=== PATIENT | female | born 1970 | race Caucasian/White ===

== ENCOUNTER 2019-10-27 14:07 | Outpatient (CLI) | payer BC, SELFPAY ==
--- NOTE | ~2019-10-27 | MM_ITS ---
EXAMINATION: MM screening bi BI w lacey HISTORY: Screening TECHNIQUE: Craniocaudal and mediolateral oblique 3-D tomosynthesis images were obtained and synthetic 2-D images were generated. CAD analysis was submitted and interpreted. COMPARISON: Comparison to multiple prior studies sequentially, with oldest reviewed study dated 10/19. BREAST PARENCHYMAL COMPOSITION: There are scattered areas of fibroglandular density. FINDINGS: There is no evidence of suspicious mass, calcification, or architectural distortion to sugg est malignancy in either breast. There has been no suspicious interval change. IMPRESSION: 1. No mammographic evidence of malignancy. 2. Recommend routine screening mammography in one year. BI-RADS Category 1: Negative Reviewed, dictated and finalized at location A.
== END 2019-10-27 14:08 | disposition home or self-care (01) ==
LOC: ANHIMG 14:11
PROVIDERS: PCP Family Medicine; Visit Provider Obstetrics & Gynecology Gynecology
DX: Z12.31 Encounter for screening mammogram for malignant neoplasm of breast (principal)
CPT/HCPCS: 77063; 77067

== ENCOUNTER 2019-10-29 08:34 | Outpatient (CLI) | payer BC, SELFPAY ==
--- NOTE | ~2019-10-29 | CT_ITS ---
EXAMINATION: CT abdomen pelvis w con DATE: 10/29/2019 09:24 INDICATION: Diverticulitis of large intestine without perforation. TECHNIQUE: Computed tomography (CT) of the abdomen and pelvis was performed with 100 mL Omnipaque 350 intravenous contrast. Automated exposure control and iterative reconstruction technique were employe d. The dose-length product was 1635.45 mGy-cm. COMPARISON: CT abdomen and pelvis 11/24/2015 FINDINGS: The visualized portions of the lung bases demonstrate mild atelectasis. No pleural effusion . The heart size is normal. No pericardial effusion. There are coronary artery calcifications. The li ned and spleen are normal. There are changes of cholecystectomy. The pancreas, adrenal glands, and ki dneys are normal. There is diverticulosis of the colon without evidence of diverticulitis. There are no dilated loops of bowel. The appendix is not visualized. There are no pathologically enlarged lymph nodes. There is no free intraperitoneal fluid. There is an intrauterine device in expected position. There is moderate lower lumbar spondylosis. There is a chronic compression fracture of T7. IMPRESSION: 1. No evidence of diverticulitis. Reviewed, dictated and finalized at location B.
== END 2019-10-29 08:35 | disposition home or self-care (01) ==
PROVIDERS: PCP Family Medicine; Visit Provider Family Medicine
DX: K57.32 Diverticulitis of large intestine without perforation or abscess without bleeding (principal)
CPT/HCPCS: 74177; Q9967

== ENCOUNTER → 2019-12-14 13:54 | Outpatient (CLI) | payer OTHER, SELFPAY ==
--- NOTE | ~2019-12-14 | US_ITS ---
EXAMINATION: US pelvic complete DATE: 12/14/2019 14:22 INDICATION: Pelvic pain, assess IUD position TECHNIQUE: Multiple transabdominal sonographic images of the pelvis were obtained. COMPARISON: 06/16/[address] dated 10/29/2019 FINDINGS: The uterus measures 7.4 x 3.8 x 4.0 cm. An IUD is present in expected position. The endomet rial complex measures 4 mm. The right ovary measures 2.3 x 1.5 x 2.0 cm. The left ovary measures 5.3 x 3.3 x 4.7 cm and contains a 3.8 cm cyst. There is normal vascular flow in the ovaries. There is no free fluid in the pelvis. IMPRESSION: 1. No sonographic correlate for the patient's symptoms. 2. IUD in expected position. Reviewed, dictated and finalized at location A.
== END ==
PROVIDERS: PCP Family Medicine; Visit Provider Nurse Practitioner
DX: R10.2 Pelvic and perineal pain (principal)
CPT/HCPCS: 76856

== ENCOUNTER 2020-05-16 17:03 | Outpatient (CLI) | payer OTHER, SELFPAY | END 2020-05-16 17:04 | disposition home or self-care (01) | LOC: ANHCOVIDVC 17:03 | PROVIDERS: PCP Family Medicine | DX: Z23 Encounter for immunization (principal) | CPT/HCPCS: 0001A; 91300 ==

== ENCOUNTER → 2020-05-26 10:04 | Outpatient (CLI) | payer OTHER, SELFPAY ==
--- NOTE | ~2020-05-26 | XR_ITS ---
XR sacrum coccyx min 2V DATE: 05/26/2020 11:19 INDICATION: Coccyx pain TECHNIQUE: AP, angled AP and lateral views COMPARISON: None FINDINGS: IUD overlies the central pelvis. No sacral or coccygeal fracture or bone destruction is evident. Normal alignment at the sacroiliac joints and pubic symphysis. IMPRESSION: No sacral or coccygeal fracture is detected Reviewed, dictated and finalized at location A.
--- NOTE | ~2020-05-26 | XR_ITS ---
XR cervical spine 4-5V DATE: 05/26/2020 11:18 INDICATION: Neck pain TECHNIQUE: Lateral, swimmer's, AP, open-mouth views. Flexion and extension lateral views. COMPARISON: cervical spine FINDINGS: C1 and C2 are normally aligned and the odontoid process is intact. No fracture or dislocation or locked facet or cervical instability. No prevertebral soft tissue swell ing. Cervical interspaces are relatively preserved. IMPRESSION: No significant abnormality Reviewed, dictated and finalized at location A. IMPRESSION: No significant abnormality
--- NOTE | ~2020-05-26 | MR_ITS ---
EXAMINATION: MR lumbar spine wo con EXAM DATE: 05/26/2020 10:37 INDICATION: Lumbar radiculopathy, low back pain, bilateral leg numbness and burning. TECHNIQUE: Multi-sequential, multiplanar MR images of the lumbar spine were obtained without contrast . Sagittal T1, T2, T2 fat saturation images. Axial T2 weighted images. Comparison is made to prior examination from 01/21/2015. FINDINGS: Interval development of 2 mm retrolisthesis L3 on L4. Minimal disc disease from L3 through S1. No spondylolysis. The conus medullaris terminates at the L1 level and has normal signal intensity and morphology. There are no suspicious marrow signal abnormalities. Paraspinal soft tissue is unre markable. Level by level evaluation: T12-L1: Disc does not extend beyond the endplate margin. Facet arthropathy: Minimal. Neural foraminal stenosis: No stenosis. Central canal stenosis: No stenosis. L1-L2: Disc does not extend beyond the endplate margin. Facet arthropathy: Mild. Neural foraminal stenosis: No stenosis. Central canal stenosis: No stenosis. L2-L3: Disc does not extend beyond the endplate margin. Facet arthropathy: Mild. Neural foraminal stenosis: No stenosis. Central canal stenosis: No stenosis. L3-L4: Disc does not extend beyond the endplate margin. Facet arthropathy: Mild. Neural foraminal stenosis: No stenosis. Central canal stenosis: No stenosis. L4-L5: Disc does not extend beyond the endplate margin. Facet arthropathy: Mild to moderate. Neural foraminal stenosis: No stenosis. Central canal stenosis: No stenosis. L5-S1: Disc does not extend beyond the endplate margin. Facet arthropathy: Mild to moderate. Neural foraminal stenosis: Mild left. Central canal stenosis: No stenosis. IMPRESSION: 1. Mild lumbar spondylosis. 2. L5-S1 mild left neural foraminal stenosis, otherwise neural foramen and canal widely patent. Reviewed, dictated and finalized at location A. IMPRESSION: 1. Mild lumbar spondylosis. 2. L5-S1 mild left neural foraminal stenosis, otherwise neural foramen and can al widely patent.
== END ==
PROVIDERS: PCP Family Medicine; Visit Provider Nurse Practitioner Family
DX: M54.2 Cervicalgia (principal); M47.26 Other spondylosis with radiculopathy, lumbar region
CPT/HCPCS: 72050; 72148; 72220

== ENCOUNTER 2020-06-06 16:51 | Outpatient (CLI) | payer OTHER, SELFPAY | END 2020-06-06 16:52 | disposition home or self-care (01) | LOC: ANHCOVIDVC 16:51 | PROVIDERS: PCP Family Medicine | DX: Z23 Encounter for immunization (principal) | CPT/HCPCS: 0002A; 91300 ==

== ENCOUNTER 2020-07-08 01:36 | Emergency (ER) | payer OTHER, SELFPAY ==
[2020-07-08] VITALS (29 sets, daily range): BP systolic 127–149; BP diastolic 74–97; PULSE 61–94; RESP 10–24; TEMP 36.8; O2SAT 90–100
--- NOTE | ~2020-07-08 | CT_ITS ---
EXAMINATION: CTA chest PE abdomen pel DATE: 07/08/2020 08:19 CDT INDICATION: Shortness of breath with back pain. History of pulmonary embolism. TECHNIQUE: Computed tomographic angiography (CTA) of the chest, abdomen, and pelvis was performed wit h 100 mL Omnipaque-350 intravenous contrast. The dose-length product was 2104.81 mGy-cm. Maximum inte nsity projection 3D-reconstructions of the aorta and other arteries were constructed by the technolog ist on a separate workstation. Automated exposure control and iterative reconstruction technique were employed. COMPARISON: CT dated 10/29/2019. FINDINGS: CHEST CTA: Study is technically adequate without evidence for pulmonary embolism. Heart size normal. No thoracic lymphadenopathy. No significant pleural or pericardial effusion. No focal airspace disease. No pneum othorax. No suspicious pulmonary nodules or masses. ABDOMEN AND PELVIS CTA: Status post cholecystectomy. The liver, spleen, pancreas, adrenal glands and kidneys are unremarkable . Nonobstructive bowel gas pattern. IUD in expected position. There is a 4.2 cm right ovarian cyst. N o free fluid or free air. No evidence for aortic aneurysm or dissection. IMPRESSION: 1. No acute abnormality of the chest, abdomen or pelvis. 2: Right ovarian cyst measuring up to 4.2 cm. Reviewed, dictated and finalized at location A.
--- NOTE | ~2020-07-08 | XR_ITS ---
EXAMINATION: XR chest 2V 07/08/2020 03:38 INDICATION: Shortness of breath. History of pulmonary embolism. PROCEDURE: 2 view chest COMPARISON: 07/19/2017 FINDINGS: The lungs are clear. The cardiomediastinal silhouette is within normal limits. There are no pleural effusions. There is no pneumothorax suspected. IMPRESSION: 1: NO ACUTE CARDIOPULMONARY DISEASE. Reviewed, dictated and finalized at location A.
--- NOTE | 2020-07-08 03:12 | ECG_ITS ---
Measurements Intervals [place] Rate: 68 P: 39 ND: 159 QRS: 16 QRSD: 98 T: 1 QT: 378 QTc: 403 Interpretive Statements SINUS RHYTHM BASELINE ARTIFACT- II, III, AVF, V1, V3-V6 NORMAL ECG Electronically Signed On 07-08-2020 7:38:24 CDT by Dayron Holman D.O.
[2020-07-08 03:36] LABS: Basophils Percent Auto 0.3 % (0.2-1.2); Eosinophils Absolute Auto 0.1 K/mm3 (0-0.3); Eosinophils Percent Auto 0.7 % (0-4.4); Hematocrit 45.2 % (37.0-47.0); Hemoglobin 15.6 g/dL (12.0-15.0); Immature Granulocyte Absolute 0.03 K/mm3 (0.00-0.031); Immature Granulocyte Percent A 0.3 % (0-0.5); Lymphocytes Absolute Auto 1.64 K/mm3 (0.9-3.2); Mean Corpuscular HGB Conc 34.5 g/dl (32-36); Mean Corpuscular Volume 92.8 fl (80-100); Mean Platelet Volume 11.6 fl (7.4-10.4); Monocytes Absolute Auto 0.9 K/mm3 (0.1-0.6); Monocytes Percent Auto 9.3 % (2.6-8.5); Neutrophils Absolute Auto 6.5 K/mm3 (1.3-6.7); Neutrophils Percent Auto 71.4 % (45.5-73.1); Platelet Count Result 198 k/mm3 (150-375); Red Blood Count 4.87 M/mm3 (4.2-5.4); Red Cell Distribution Width 13.2 % (11.5-14.5); White Blood Count 9.1 K/mm3 (4.5-10.0)
[2020-07-08 03:45] LABS: Potassium 4.1 mmol/L (3.4-5.0)
[2020-07-08 03:47] LABS: Anion Gap 7 mmol/L (8-16); Blood Urea Nitrogen 17 mg/dL (7-17); Calcium 9.3 mg/dL (8.4-10.2); Carbon Dioxide 23 mmol/L (22-30); Chloride 106 mmol/L (98-107); Estimated CRCL calculation 92 ml/min; Estimated Glomerular Filt Rate > 60; Glucose 87 mg/dL (65-105); Sodium 136 mmol/L (137-145)
--- NOTE | 2020-07-08 04:43 | ED.GENADULT ---
HPI - General Adult General Chief complaint: Shortness of Breath/Dyspnea Stated complaint: doiff breathing/anxiety Time Seen by Provider: 07/08/20 04:23 Source: patient and RN notes reviewed Mode of arrival: ambulatory Limitations: no limitations History of Present Illness HPI narrative: This is a 49 year old female with history of fibromyalgia, hyperthyroid, depression, PE who presents from home for evaluation of shortness of breath. Patient states just prior to arrival she woke up shaky, bilateral hand tingling, feeling like her throat was closing, and short of breath. She thought she was having an allergic reaction. She also states she had epigastric abdominal pain at onset with nausea. Her symptoms have all resolved except mild nausea. She also reports intermittent back pain . She takes xarelto for history of blood clots. She reports compliance. She denies signs of DVT. Related Data Home Medications Medication Instructions Recorded Confirmed bevacizumab 25 mg/mL intravenous INTRAVITREAL 01/20/20 06/14/20 solution naltrexone 1.5 mg PO DAILY 07/08/20 Allergies Allergy/AdvReac Type Severity Reaction Status Date / Time sulfamethoxazole Allergy Mild RASSH Verified 07/08/20 01:50 trimethoprim Allergy Mild RASSH Verified 07/08/20 01:50 Sulfa (Sulfonamide Allergy Unknown Unknown Verified 07/08/20 01:50 Antibiotics) sulfamethizole Allergy Unknown Skin Verified 07/08/20 01:50 Reaction Review of Systems Review of Systems: All systems reviewed & are unremarkable except as noted in HPI and below PMFSH Past Medical History Medical History Carpal tunnel syndrome, bilateral Diverticulitis large intestine DVT (deep venous thrombosis) Elevated blood pressure, situational Hypothyroid Interstitial cystitis Obesity Retinal vein occlusion of left eye Family History Family History Mother Diabetes mellitus Father Cerebrovascular accident, Onset Age: 72 Family history of coronary artery disease, Onset Age: 72 Family history of atrial fibrillation, Onset Age: 72 Family history of congestive heart failure, Onset Age: 72 Other Carcinoma of colon Family history of colonic diverticulitis Social History Social History Smoking status: Never smoker Alcohol intake: never Exam Const: General: no acute distress and alert Orientation/consciousness: patient oriented x3 HENMT: Head: normocephalic and atraumatic Face and sinus: face symmetric Mouth: Yes Normal oral and palatal mucosa present, Yes lip normal, Yes oropharynx normal, Yes moist mucous membranes and Yes other (no hoarseness or stridor) Throat: posterior oropharynx normal and tonsils normal Eyes: EOM: EOMs intact bilaterally Resp: Effort & Inspection: normal respiratory effort and no retractions Auscultation: clear to auscultation bilaterally Cardio: Rate: regular rate Rhythm: regular rhythm Heart sounds: no murmurs GI: GI Palp: Yes Soft to palpation, No Tenderness to palpation present (GI) and No Guarding due to palpation present (GI) Auscultation: normal bowel sounds Skin: General skin exam: normal color Rashes: no rashes Neuro: General: patient oriented x3, moves all extremities and CN's II-XI intact bilaterally Course Reevaluation(s) Reevaluation #1: I discussed with patient lab finding. She had an elevated lipase but no pancreatitis on CT. Troponin has been negative. She has no symptoms now. this may have been a panic attack. Date: 07/08/20 Time: 07:39 Vital Signs Vital signs: Vital Signs Temperature 98.2 F 07/08/20 01:42 Pulse Rate 90 07/08/20 01:42 Respiratory Rate 19 07/08/20 01:42 Blood Pressure 149/97 H 07/08/20 01:42 Pulse Oximetry 100 07/08/20 01:42 Temperature 98.2 F 07/08/20 01:42 Pulse Rate
[2020-07-08] MEDS: ONDANSETRON HCL ODT 4 MG TABLET PO (04:50)
[2020-07-08 05:38] LABS: Alanine Aminotransferase 36 U/L (4-35); Albumin Level 4.3 g/dL (3.5-5.1); Alkaline Phosphatase 98 U/L (38-126); Aspartate Amino Transferase 40 U/L (14-36); Bilirubin,Total 0.6 mg/dL (0.2-1.3); Lipase 786 U/L (23-300)
[2020-07-08 05:57] LABS: Troponin I < 0.012 ng/mL (0.000-0.034)
[2020-07-08 06:09] LABS: D Dimer 0.27 ug/mL (<0.48)
[2020-07-08 07:02] LABS: Troponin I < 0.012 ng/mL (0.000-0.034)
== END 2020-07-08 08:09 | disposition home or self-care (01) ==
PROVIDERS: Emergency Provider General Practice; PCP Family Medicine
DX: F41.9 Anxiety disorder, unspecified (principal); R74.8 Abnormal levels of other serum enzymes; E03.9 Hypothyroidism, unspecified; M79.7 Fibromyalgia; Z86.711 Personal history of pulmonary embolism; Z79.01 Long term (current) use of anticoagulants; Z86.718 Personal history of other venous thrombosis and embolism; Z68.41 Body mass index [BMI] 40.0-44.9, adult
CPT/HCPCS: 36415; 71046; 71275; 74177; 80048; 80076; 81025; 83690; 84484; 85025; 85380; 93005; 99284; A9270; Q9967

== ENCOUNTER 2021-11-11 10:39 | Emergency (ER) | payer BC, SELFPAY ==
[2021-11-11] VITALS (7 sets, daily range): BP systolic 115–140; BP diastolic 84–95; PULSE 82–109; RESP 16–20; TEMP 36.4; O2SAT 97–99
--- NOTE | ~2021-11-11 | CT_ITS ---
EXAMINATION: CTA chest PE protocol DATE: 11/11/2021 13:17 INDICATION: Shortness of breath. Covid-positive. History of pulmonary embolism. TECHNIQUE: Computed tomography angiography (CTA) of the chest was performed with 100 mL Omnipaque-350 intravenous contrast timed to evaluate the pulmonary arteries. Coronal maximum intensity projection 3D-reconstructions were created by the technologist. Automated exposure control and iterative reconst ruction technique were employed. Exam dose: 811.55 mGy-cm total exam DLP. COMPARISON: 11/11/2021 PA and lateral chest FINDINGS: There is diagnostic contrast enhancement of the pulmonary arteries and no evidence of pulmo nary embolism. No hilar or mediastinal mass lesion or lymphadenopathy. No thoracic aortic aneurysm or dissection. Heart size is within normal limits. No pericardial or pleural effusion. Patchy groundglass density of the lung wood suggesting small airways disease. Status post cholecystectomy. Normal morphology of the adrenal glands. Colonic diverticulosis. IMPRESSION: No evidence of pulmonary embolism Reviewed, dictated and finalized at Location A. Reviewed, dictated and finalized at location A.
--- NOTE | ~2021-11-11 | XR_ITS ---
XR chest 2V DATE: 11/11/2021 11:03 INDICATION: Cough. Covid-positive. TECHNIQUE: PA and lateral views COMPARISON: 07/08/2020 CTA chest abdomen pelvis FINDINGS: Normal heart size. No hilar or mediastinal enlargement. No pulmonary infiltrate or consolid ation, pleural effusion or pulmonary vascular congestion or pneumothorax. Chronic moderate T7 compression fracture deformity, present on 07/18/2020, stable. Status post cholecystectomy. IMPRESSION: No active cardiopulmonary disease Chronic T7 compression fracture Status post cholecystectomy Reviewed, dictated and finalized at location A.
--- NOTE | 2021-11-11 10:46 | ECG_ITS ---
Measurements Intervals [place] Rate: 87 P: 30 [place]: 167 QRS: 17 QRSD: 92 T: 16 QT: 338 QTc: 407 Interpretive Statements SINUS RHYTHM CONSIDER INFERIOR INFARCT, AGE INDETERMINATE BORDERLINE T WAVE ABNORMALITY- ANTERIOR LEADS BASELINE ARTIFACT- I, II, AVR ABNORMAL ECG COMPARED TO ECG 07/08/2020 04:49:03 NO SIGNIFICANT CHANGES Electronically Signed On 11-12-2021 6:43:59 CDT by Dayron Holman D.O.
[2021-11-11 10:57] LABS: Basophils Percent Auto 0.8 % (0.2-1.2); Eosinophils Absolute Auto 0.1 K/mm3 (0-0.3); Eosinophils Percent Auto 2.5 % (0-4.4); Immature Granulocyte Absolute 0.01 K/mm3 (0.00-0.031); Immature Granulocyte Percent A 0.3 % (0-0.5); Lymphocytes Absolute Auto 1.44 K/mm3 (0.9-3.2); Lymphocytes Percent Auto 39.8 % (18.3-44.2); Mean Corpuscular Hemoglobin 31.4 pg (26-34); Mean Corpuscular Volume 92.2 fl (80-100); Mean Platelet Volume 11.9 fl (7.4-10.4); Monocytes Absolute Auto 0.2 K/mm3 (0.1-0.6); Monocytes Percent Auto 5.5 % (2.6-8.5); Neutrophils Absolute Auto 1.9 K/mm3 (1.3-6.7); Neutrophils Percent Auto 51.1 % (45.5-73.1); Platelet Count Result 209 k/mm3 (150-375); Red Cell Distribution Width 12.9 % (11.5-14.5); White Blood Count 3.6 K/mm3 (4.5-10.0)
[2021-11-11 11:08] LABS: Alanine Aminotransferase 33 U/L (6-35); Albumin Level 4.8 g/dL (3.5-5.1); Alkaline Phosphatase 86 U/L (38-126); Anion Gap 16 mmol/L (8-16); Aspartate Amino Transferase 31 U/L (14-36); Bilirubin,Total 0.6 mg/dL (0.2-1.3); Blood Urea Nitrogen 11 mg/dL (7-17); Calcium 9.3 mg/dL (8.4-10.2); Carbon Dioxide 22 mmol/L (22-30); Chloride 102 mmol/L (98-107); Estimated CRCL calculation 80 ml/min; Estimated Glomerular Filt Rate 59; Glucose 168 mg/dL (65-110); Potassium 3.9 mmol/L (3.4-5.0); Sodium 140 mmol/L (137-145)
--- NOTE | 2021-11-11 12:46 | ED.SOB ---
HPI - SOB/Dyspnea General Chief Complaint: Shortness of Breath/Dyspnea Stated Complaint: COVID+, hx of PE Time Seen by Provider: 11/11/21 11:51 Source: patient Mode of arrival: ambulatory Limitations: no limitations History of Present Illness HPI Narrative: This is a 50 year old female that presents to the ER for shortness of breath. Associated with pain between her shoulder blades. Reports history of PE and that this felt similar which prompted her to be seen. Reports sore throat, headache, fever, congestion, myalgias. She is currently COVID positive. She is vaccinated. Denies lower extremity edema. Related Data Home Medications Medication Instructions Recorded Confirmed bevacizumab 25 mg/mL intravenous intravitreal 01/20/20 06/28/21 solution (Avastin) doxycycline hyclate 100 mg tablet 100 mg PO BID 08/06/21 Allergies Allergy/AdvReac Type Severity Reaction Status Date / Time sulfamethoxazole Allergy Mild RASSH Verified 11/11/21 11:41 trimethoprim Allergy Mild RASSH Verified 11/11/21 11:41 Sulfa (Sulfonamide Allergy Unknown Unknown Verified 11/11/21 11:41 Antibiotics) sulfamethizole Allergy Unknown Skin Verified 11/11/21 11:41 Reaction Review of Systems Review of Systems: CONSTITUTIONAL: Denies fever CARDIOVASCULAR: Denies chest pain, or edema. RESPIRATORY: Reports cough and dyspnea. All systems reviewed & are unremarkable except as noted in HPI and below PMFSH Past Medical History Medical History Carpal tunnel syndrome, bilateral Diverticulitis large intestine DVT (deep venous thrombosis) Elevated blood pressure, situational Hypothyroid Interstitial cystitis Obesity Retinal vein occlusion of left eye Family History Family History Mother Diabetes mellitus Father Cerebrovascular accident, Onset Age: 72 Family history of coronary artery disease, Onset Age: 72 Family history of atrial fibrillation, Onset Age: 72 Family history of congestive heart failure, Onset Age: 72 Other Carcinoma of colon Family history of colonic diverticulitis Social History Social History Smoking status: Never smoker Alcohol intake: never Exam Narrative: GENERAL: Well-appearing, well-nourished, and in no acute distress. HEAD: Normocephalic, atraumatic. EYES: EOMI. ENT: Nares clear, no rhinorrhea or epistaxis. Mucous membranes moist. Oropharynx without tonsillar hypertrophy exudate or other lesions. NECK: Supple. No adenopathy or masses. CHEST: Clear to auscultation. No respiratory distress. No wheezes rales or rhonchi HEART: Regular rate and rhythm. No murmur heard. Normal peripheral pulses. EXTREMITIES: Normal range of motion. No edema. SKIN: Warm, dry, no rash. NEURO: No focal deficits. Alert and oriented x3. PSYCH: Normal mood and affect Course Vital Signs Vital signs: Vital Signs Temperature 97.6 F 11/11/21 10:43 Pulse Rate 109 H 11/11/21 10:43 Respiratory Rate 16 11/11/21 10:43 Blood Pressure 120/85 11/11/21 10:43 Pulse Oximetry 99 11/11/21 10:43 Oxygen Delivery Room Air 11/11/21 10:43 Temperature 97.6 F 11/11/21 10:43 Pulse Rate 82 11/11/21 12:40 Respiratory Rate 20 11/11/21 12:40 Blood Pressure 140/90 11/11/21 12:40 Pulse Oximetry 98 11/11/21 12:40 Oxygen Delivery Room Air 11/11/21 11:38 MDM - SOB/Dyspnea MDM Narrative Medical decision making narrative: Patient presents to the ER for shortness of breath. Currently COVID positive. Patient is afebrile and nontoxic appearing. Oxygen saturations remained normal on room air. CBC with white blood cell count of 3.6, consistent with current viral infection. Patient is also mildly hemoconcentrated. Metabolic panel without concerning findings. Bedside test is negative. Patient with history of PE. Repo
== END 2021-11-11 14:36 | disposition home or self-care (01) ==
PROVIDERS: Emergency Provider Emergency Medicine; PCP Family Medicine
DX: U07.1 COVID-19 (principal); E03.9 Hypothyroidism, unspecified; Z86.718 Personal history of other venous thrombosis and embolism; E66.9 Obesity, unspecified; Z68.41 Body mass index [BMI] 40.0-44.9, adult
CPT/HCPCS: 36415; 71046; 71275; 80053; 81025; 85025; 93005; 99284; Q9967

== ENCOUNTER → 2022-01-21 07:01 | Outpatient (CLI) | payer BC, SELFPAY ==
--- NOTE | ~2022-01-21 | MR_ITS ---
EXAMINATION: MR ankle RT wo con DATE: 01/21/2022 07:39 INDICATION: Right ankle posterior tibial tendinitis. TECHNIQUE: Magnetic resonance imaging (MRI) of the right ankle was performed without intravenous cont rast. Sequences included sagittal, coronal, and axial proton-density weighted fast spin echo without and with fat saturation. COMPARISON: None. FINDINGS: Medial ankle ligaments: Deep and superficial deltoid ligaments as well as the spring ligament are normal. Lateral ankle ligaments: The anterior and posterior inferior tibiofibular ligaments are normal. The anterior talofibular, calc aneofibular and posterior talofibular ligaments are normal. Tendons: Mild distal Achilles tendinosis without discrete tear. Small enthesopathic ossicles along the superficial margin of the distal insertion of the tendon. The peroneus longus and brevis tendons are normal. The tibialis anterior and extensor hallucis longus and extensor digitorum longus tendons are normal. The tibialis posterior, flexor digitorum longus and fl exor hallucis longus tendons are normal. Plantar fascia: Plantar aponeurosis is normal. Bones/other: Minimal to mild particular osteoarthritis throughout the joints of the right ankle, mid and hindfoot. This most notable for small region of high-grade chondromalacia at the dorsolateral aspect of the ca lcaneocuboid joint where there is high-grade chondral malacia with mild subarticular cystlike and romario ma-like signal changes. Fluid: Physiologic amount fluid in the joint spaces. There is fluid in the retrocalcaneal bursa which measur es 1.8 x 1.4 x 0.8 cm consistent with retrocalcaneal bursitis. No other abnormal fluid collections id entified. IMPRESSION: 1. Mild distal Achilles tendinosis/enthesopathy with underlying retrocalcaneal bursitis. 2. Mild polyarticular osteoarthritis at the right ankle, mid and hindfoot with small regions of high- grade chondromalacia at the dorsal lateral margin of both sides of the calcaneocuboid joint. Reviewed, dictated and finalized at location A. PATIONAL THERAPY ASSIST IMPRESSION: 1. Mild distal Achilles tendinosis/enthesopathy with underlying retrocalcaneal bursitis. 2. Mild polyarticular osteoarthritis at the right ankle, mid and hindfoot with small regions of high-grade chondromalacia at the dorsal lateral margin of both sides of the calcaneocuboid joint.
== END ==
PROVIDERS: PCP Family Medicine; Visit Provider Podiatrist Foot & Ankle Surgery
DX: M76.821 Posterior tibial tendinitis, right leg (principal); M19.071 Primary osteoarthritis, right ankle and foot
CPT/HCPCS: 73721

== ENCOUNTER → 2023-02-07 08:48 | Outpatient (CLI) | payer BC, SELFPAY ==
--- NOTE | ~2023-02-07 | US_ITS ---
US abdomen complete EXAMINATION: US Abdomen Complete INDICATION: Abdomen pain PROCEDURE: Realtime High Resolution abdomen ultrasound. COMPARISON: No prior studies for comparison FINDINGS: The bladder is surgically absent. Common bile duct measures 4.5 mm. Liver echotexture within normal limits without focal mass. Pancreas within normal limits. Pancreati c tail is obscured by bowel gas. Spleen is unremarkeable. Renal echotexture is within normal limits bilaterally without hydronephrosis, contour deforming mass or renal stone. Right kidney measures 10.8 cm. Left kidney measures 9.9 cm. Visualized aspects of the aorta and IVC are within normal limits. Portal vein is patent. No sonograph ic Holbrook's sign indicated by the technologist. IMPRESSION: 1: Unremarkable abdominal ultrasound. Reviewed, dictated and finalized at location B. 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
== END ==
PROVIDERS: PCP Family Medicine; Visit Provider Nurse Practitioner Family
DX: R10.9 Unspecified abdominal pain (principal)
CPT/HCPCS: 76700

== ENCOUNTER 2023-03-11 18:28 | Inpatient (IN) | payer BC, SELFPAY ==
--- NOTE | ~2023-03-11 | CT_ITS ---
EXAMINATION: CT abdomen pelvis w con DATE: 03/11/2023 21:57 INDICATION: Abdominal pain elevated lipase TECHNIQUE: Computed tomography (CT) of the abdomen and pelvis was performed with 100 mL Omnipaque-350 intravenous contrast. Automated exposure control and iterative reconstruction technique were employe d. The dose-length product was 1210.69 mGy-cm. COMPARISON: 07/08/2020. FINDINGS: Lower thorax: Coronary artery calcifications. Right basilar scar/atelectasis. Liver: Normal. Biliary/Gallbladder: Gallbladder is absent. Prominent intrahepatic bile ducts and mild extrahepatic d uct dilation, likely secondary to cholecystectomy. Pancreas: No mass or duct dilation. Spleen: Normal. Adrenals:No mass. Kidneys: No suspicious mass, obstructing stone, or hydronephrosis. GI tract: Mild distal esophageal and gastric wall edema. No small or large bowel dilation. The append ix is not confidently visualized. Diverticulosis without diverticulitis. Mesentery/Peritoneum: No ascites, mass, or free air. Retroperitoneum: No mass. Pelvis: Pelvic organs are within normal limits. IUD. Soft Tissues: Soft tissues and body wall unremarkable. Bones: No acute osseous finding. IMPRESSION: Mild esophagitis/gastritis. Otherwise, no acute abdominopelvic process detected. Specifically, there is no CT evidence of pancrea titis. Reviewed, dictated and finalized at location K. CUTTER IMPRESSION: Mild esophagitis/gastritis. Otherwise, no acute abdominopelvic process detected. Specifically, there is no CT evidence of pancreatitis.
[2023-03-11 19:19] VITALS: BP 114/88; PULSE 107; RESP 20; TEMP 35.9; O2SAT 98
[2023-03-11 20:13] LABS: Basophils Percent Auto 0.2 % (0.2-1.2); Eosinophils Absolute Auto 0.5 K/mm3 (0-0.3); Eosinophils Percent Auto 8.1 % (0-4.4); Hematocrit 46.6 % (37.0-47.0); Hemoglobin 16.3 g/dL (12.0-15.0); Immature Granulocyte Absolute 0.01 K/mm3 (0.00-0.031); Immature Granulocyte Percent A 0.2 % (0-0.5); Lymphocytes Absolute Auto 1.32 K/mm3 (0.9-3.2); Mean Corpuscular Hemoglobin 32.8 pg (26-34); Mean Corpuscular Volume 93.8 fl (80-100); Mean Platelet Volume 11.9 fl (7.4-10.4); Monocytes Absolute Auto 0.3 K/mm3 (0.1-0.6); Monocytes Percent Auto 5.2 % (2.6-8.5); Neutrophils Absolute Auto 4.1 K/mm3 (1.3-6.7); Neutrophils Percent Auto 65.3 % (45.5-73.1); Platelet Count Result 192 k/mm3 (150-375); Red Blood Count 4.97 M/mm3 (4.2-5.4); Red Cell Distribution Width 12.2 % (11.5-14.5); White Blood Count 6.3 K/mm3 (4.5-10.0)
[2023-03-11 20:29] LABS: Alanine Aminotransferase 96 U/L (6-35); Albumin Level 4.3 g/dL (3.5-5.1); Alkaline Phosphatase 126 U/L (38-126); Anion Gap 9 mmol/L (8-16); Aspartate Amino Transferase 99 U/L (14-36); Bilirubin,Total 1.2 mg/dL (0.2-1.3); Blood Urea Nitrogen 15 mg/dL (7-17); Calcium 9.1 mg/dL (8.4-10.2); Carbon Dioxide 23 mmol/L (22-30); Chloride 106 mmol/L (98-107); Estimated CRCL calculation 64 ml/min; Estimated Glomerular Filt Rate 52; Glucose 136 mg/dL (65-110); Lipase 1205 U/L (23-300); Sodium 138 mmol/L (137-145)
[2023-03-11 21:11] LABS: Add Urine Microscopic? YES; Appearance Urine Clear (Clear); Color Urine Yellow (Yellow); Protein Urine Trace mg/dL (Negative); Specific Grav Ur >= 1.030 (1.001-1.035); pH Urine 5.5 (5.0-9.0)
[2023-03-11 21:12] LABS: Bilirubin Urine 1+ (Negative); Blood Urine Negative (Negative); Glucose Urine UA Negative (Negative); Ketones Urine Trace mg/dL (Negative); Leukocyte Esterase Ur Trace LEU/UL (Negative); Nitrate Urine Negative (Negative); Urobilinogen Urine 0.2 mg/dL (<2.0)
[2023-03-11 21:13] LABS: Bacteria Urine Trace /hpf; RBC Urine 0-2 /hpf (0-2); Squamous Epithelial Cell Urine Few /hpf (Few); WBC Urine 0-3 /hpf (0-3)
[2023-03-11 21:14] LABS: Mucus Urine Few /lpf
[2023-03-11] MEDS: ONDANSETRON INJ 4 MG/2 ML VIAL IV PUSH (21:46)
[2023-03-11] MEDS: SODIUM CHLORIDE 0.9% IV 1,000 ML 999 ML IV CONT (21:46)
[2023-03-11 22:16] VITALS: BP 130/81; PULSE 63; RESP 16; O2SAT 98
[2023-03-11] MEDS: MORPHINE SULFATE (*CRX) 4 MG/ML INJ IV PUSH (22:55)
[2023-03-11 23:16] VITALS: BP 111/59; PULSE 56; RESP 21; O2SAT 98
[2023-03-11 23:31] VITALS: BP 112/70; PULSE 56; RESP 24; O2SAT 99
[2023-03-11 23:46] VITALS: BP 131/83; PULSE 61; RESP 13; O2SAT 92
[2023-03-12] VITALS (7 sets, daily range): BP systolic 92–128; BP diastolic 49–95; PULSE 54–61; RESP 13–20; TEMP 35.6–36.4; O2SAT 95–100; BMI 35.2
--- NOTE | 2023-03-12 00:02 | ED.GENADULT ---
HPI - General Adult General Chief complaint: Abdominal Pain Stated complaint: diarrhea X24 hours adn abdominal pain Time Seen by Provider: 03/11/23 21:28 History of Present Illness HPI narrative: Patient is a 52-year-old female who presents emergency department with chief complaint of abdominal pain and diarrhea. The patient reports having pain in the epigastric region reports that it feels similar to whenever she had pancreatitis secondary to a gallstone the patient was has recently been on Wegovy. Related Data Home Medications Medication Instructions Recorded Confirmed famotidine 40 mg tablet 40 mg PO DAILY 03/05/22 03/12/23 bupropion HCl 300 mg 24 hr tablet, 300 mg PO DAILY 03/12/23 03/12/23 extended release (Wellbutrin XL) clotrimazole-betamethasone 1 1 applic topical BID PRN yeast 03/12/23 03/12/23 %-0.05 % topical cream omeprazole 40 mg PO DAILY PRN Heartburn 03/12/23 03/12/23 spironolactone 50 mg tablet 50 mg PO DAILY 03/12/23 03/12/23 Allergies Allergy/AdvReac Type Severity Reaction Status Date / Time sulfamethoxazole Allergy Mild Rash Verified 03/12/23 02:39 trimethoprim Allergy Mild Rash Verified 03/12/23 02:39 Sulfa (Sulfonamide Allergy Unknown Unknown Verified 03/12/23 02:39 Antibiotics) sulfamethizole Allergy Unknown Skin Verified 03/12/23 02:39 Reaction Review of Systems Review of Systems: A 10 system review of systems was completed on the patient and is negative except for what is stated in the HPI. Nursing and ancillary documentation was reviewed. [facility] [place] Past Medical History Medical History Carpal tunnel syndrome, bilateral Diverticulitis large intestine DVT (deep venous thrombosis) Elevated blood pressure, situational Hypothyroid Interstitial cystitis Obesity Retinal vein occlusion of left eye Family History Family History Mother Diabetes mellitus Father Family history of coronary artery disease, Onset Age: 72 Family history of atrial fibrillation, Onset Age: 72 Family history of congestive heart failure, Onset Age: 72 Cerebrovascular accident, Onset Age: 72 Family history of colonic diverticulitis Grandparent Carcinoma of colon Social History Social History Smoking status: Never smoker Alcohol intake: never Drinks per week: 2 Substance use: never Substance use type: does not use Do You Feel Safe in your Home?: Yes Lack of Transportation: No Lack of Food: Never True Current Housing: I Have Housing Concerned About Future Housing: No Difficulty Paying Gas/Electric Bills: No Difficulty Paying for Meds: No Currently Unemployed: No Education: High School Diploma/GED Difficulty w/ Childcare or Family Care: No Living arrangements: alone Spiritual care concerns: No Exam Narrative: GENERAL: Well-appearing, well-nourished, and in no acute distress. HEAD: Normocephalic, atraumatic. EYES: PERRLA and EOMI. ENT: Nares clear, no rhinorrhea or epistaxis. Mucous membranes moist. NECK: Supple. CHEST: Clear to auscultation. No respiratory distress. HEART: Regular rate and rhythm. No murmur heard. Normal peripheral pulses. ABDOMEN: Soft, tenderness to palpation in the epigastric region, nondistended, normal active bowel sounds. EXTREMITIES: Normal range of motion. No edema. SKIN: Warm, dry, no rash. NEURO: No focal deficits. Alert and oriented x3. PSYCH: Normal mood and affect. Course Vital Signs Vital signs: Vital Signs Temperature 35.9 C L 03/11/23 19:19 Pulse Rate 107 H 03/11/23 19:19 Respiratory Rate 20 03/11/23 19:19 Blood Pressure 114/88 03/11/23 19:19 Pulse Oximetry 98 03/11/23 19:19 Oxygen Delivery Room Air 03/11/23 19:19 Temperature 36.2 C L 03/13/23 00:00 Pulse Rate 64 03/13/23 00:00 R
[2023-03-12] MEDS: MORPHINE SULFATE (*CRX) 4 MG/ML INJ IV PUSH ×3 (00:58→05:52)
[2023-03-12] MEDS: SODIUM CHLORIDE 0.9% IV 1,000 ML 200 ML IV CONT ×3 (02:29→09:55)
--- NOTE | 2023-03-12 02:32 | ADMGEN ---
This patient, Katelyn Malave, was admitted to 3 [facility] Surg Room 320-01. Patient/family oriented to hospital policies and general routines including ID bracelet, bed and alarms, visiting hours, pain management, procedures, bathroom and other care routines, personal items, smoking policy, room service/diet, and visiting hours. Information on how to activate the Rapid Response Team has been discussed. Patient/Family are encouraged to report perceived risks to care and to ask questions if they do not understand what they are told or what they should do.
[2023-03-12] MEDS: ONDANSETRON INJ 4 MG/2 ML VIAL IV PUSH ×2 (02:50→18:35)
[2023-03-12 08:42] LABS: Alanine Aminotransferase 128 U/L (6-35); Albumin Level 3.3 g/dL (3.5-5.1); Alkaline Phosphatase 109 U/L (38-126); Anion Gap 5 mmol/L (8-16); Aspartate Amino Transferase 140 U/L (14-36); Blood Urea Nitrogen 12 mg/dL (7-17); Calcium 8.2 mg/dL (8.4-10.2); Carbon Dioxide 27 mmol/L (22-30); Chloride 108 mmol/L (98-107); Cholesterol 125 mg/dL (0-200); Estimated CRCL calculation 64 ml/min; Estimated Glomerular Filt Rate 52; Glucose 78 mg/dL (65-110); HDL Direct 37 mg/dL; Lipase 216 U/L (23-300); Potassium 4.4 mmol/L (3.4-5.0); Sodium 140 mmol/L (137-145); Triglycerides 77 mg/dL (<150)
[2023-03-12 08:46] LABS: Basophils Percent Auto 0.2 % (0.2-1.2); Eosinophils Absolute Auto 0.5 K/mm3 (0-0.3); Hematocrit 42.3 % (37.0-47.0); Hemoglobin 13.6 g/dL (12.0-15.0); Lymphocytes Absolute Auto 1.42 K/mm3 (0.9-3.2); Lymphocytes Percent Auto 33.3 % (18.3-44.2); Mean Corpuscular HGB Conc 32.2 g/dl (32-36); Mean Corpuscular Volume 99.5 fl (80-100); Mean Platelet Volume 11.9 fl (7.4-10.4); Monocytes Absolute Auto 0.3 K/mm3 (0.1-0.6); Monocytes Percent Auto 6.6 % (2.6-8.5); Neutrophils Absolute Auto 2.1 K/mm3 (1.3-6.7); Neutrophils Percent Auto 48.9 % (45.5-73.1); Platelet Count Result 145 k/mm3 (150-375); Red Blood Count 4.25 M/mm3 (4.2-5.4); Red Cell Distribution Width 12.5 % (11.5-14.5); White Blood Count 4.3 K/mm3 (4.5-10.0)
[2023-03-12 08:52] LABS: LDL Cholesterol Direct 67 mg/dL
[2023-03-12 09:01] LABS: Hemoglobin A1C 5.3 % (<5.7)
[2023-03-12] MEDS: PANTOPRAZOLE SODIUM IV 40 MG VIAL IV PUSH (09:54)
[2023-03-12] MEDS: ACETAMINOPHEN 325 MG TABLET 650 MG PO ×2 (10:00→17:30)
--- NOTE | 2023-03-12 10:10 | PM.IMHP ---
H&P: HPI History of Present Illness Date/Time: 03/12/23 10:10 Chief Complaint: ABD Pain Narrative: Patient is a 52-year-old female who presented to the emergency department complaints abdominal pain. Patient reports the abdominal pain began 2 days ago however has worsened has been unable to tolerate any intake with nausea no vomiting, and diarrhea. Patient rates pain a 10/10 prior to admission. Patient does report a past medical history of hypertension, diverticulosis,hypothyroidism, and anxiety. Patient denies any chest pain, shortness a breast, vomiting, fever, chills, flank pain. Patient reports she is currently on a code B which is initiated 6 months ago however due to continued diarrhea and abdominal pain her primary care physician lower dose but patient was not able to obtain dose current dose. Patient's labs unremarkable other than an elevated lipase at 1204 and Cr 1.10. At time of assessment patient reports improvement to abdominal pain following IV fluids NPO status. Patient admitted for observation for acute pancreatitis Review of Systems Review of Systems: All systems reviewed & are unremarkable except as noted in HPI and below PMFSH Past Medical History Medical History Carpal tunnel syndrome, bilateral Diverticulitis large intestine DVT (deep venous thrombosis) Elevated blood pressure, situational Hypothyroid Interstitial cystitis Obesity Retinal vein occlusion of left eye Family History Family History Mother Diabetes mellitus Father Family history of coronary artery disease, Onset Age: 72 Family history of atrial fibrillation, Onset Age: 72 Family history of congestive heart failure, Onset Age: 72 Cerebrovascular accident, Onset Age: 72 Family history of colonic diverticulitis Grandparent Carcinoma of colon Social History Social History Smoking status: Never smoker Alcohol intake: never Drinks per week: 2 Substance use: never Substance use type: does not use Do You Feel Safe in your Home?: Yes Lack of Transportation: No Lack of Food: Never True Current Housing: I Have Housing Concerned About Future Housing: No Difficulty Paying Gas/Electric Bills: No Difficulty Paying for Meds: No Currently Unemployed: No Education: High School Diploma/GED Difficulty w/ Childcare or Family Care: No Living arrangements: alone Spiritual care concerns: No Meds Home Medications and Allergies Home Medications Medication Instructions Recorded Confirmed Type famotidine 40 mg tablet 40 mg PO DAILY 03/05/22 03/12/23 History ondansetron HCl 4 mg tablet 4 mg PO Q8H PRN nausea and 11/01/22 03/12/23 Rx vomiting #30 tabs sertraline 100 mg tablet 200 mg PO DAILY #180 tabs 11/13/22 03/12/23 Rx dicyclomine 10 mg capsule 10 mg PO BID PRN abdominal pain 12/11/22 03/12/23 Rx #30 caps semaglutide (weight loss) 2.4 See Rx Instructions .Route 01/06/23 03/12/23 Rx mg/0.75 mL subcutaneous pen .COMPLEX #3 mL injector (Wegovy) methocarbamol 750 mg tablet 750 mg PO TID PRN muscle pain #30 01/31/23 03/12/23 Rx tabs tramadol 50 mg tablet 50 mg PO Q6H PRN pain #20 tabs 01/31/23 03/12/23 Rx semaglutide (weight loss) 1.7 1.7 mg (0.75 mL) subcut WEEKLY #3 02/07/23 03/12/23 Rx mg/0.75 mL subcutaneous pen mL injector (Wegovy) atorvastatin 10 mg tablet 10 mg PO QHS #90 tabs 02/12/23 03/12/23 Rx levothyroxine 150 mcg tablet 150 mcg PO DAILY #90 tabs 02/21/23 03/12/23 Rx (Synthroid) bupropion HCl 300 mg 24 hr tablet, 300 mg PO DAILY 03/12/23 03/12/23 History extended release (Wellbutrin XL) clotrimazole-betamethasone 1 1 applic topical BID PRN yeast 03/12/23 03/12/23 History %-0.05 % topical cream omeprazole 40 mg PO DAILY PRN Heartburn 03/12/23 03/12/23 History spironolactone 50
[2023-03-12] MEDS: KETOROLAC 15 MG/ML VIAL (*BKC) IV PUSH (10:55)
[2023-03-12] MEDS: SODIUM CHLORIDE 0.9% IV 1,000 ML 100 ML IV CONT ×2 (19:27→23:17)
[2023-03-13] VITALS: BP 118/71; PULSE 64; RESP 16; TEMP 36.2; O2SAT 97
[2023-03-13] MEDS: ACETAMINOPHEN 325 MG TABLET 650 MG PO (00:47)
[2023-03-13] MEDS: SODIUM CHLORIDE 0.9% IV 1,000 ML 100 ML IV CONT (05:41)
[2023-03-13 06:34] LABS: Hemoglobin 13.5 g/dL (12.0-15.0); Immature Granulocyte Percent A 0.2 % (0-0.5); Lymphocytes Percent Auto 33.4 % (18.3-44.2); Mean Corpuscular HGB Conc 33.8 g/dl (32-36); Mean Corpuscular Volume 94.8 fl (80-100); Mean Platelet Volume 12.2 fl (7.4-10.4); Monocytes Percent Auto 5.6 % (2.6-8.5); Neutrophils Percent Auto 46.7 % (45.5-73.1); Platelet Count Result 133 k/mm3 (150-375); Red Blood Count 4.22 M/mm3 (4.2-5.4); Red Cell Distribution Width 12.2 % (11.5-14.5); White Blood Count 4.6 K/mm3 (4.5-10.0)
[2023-03-13 06:35] LABS: Basophils Percent Auto 0.2 % (0.2-1.2); Eosinophils Absolute Auto 0.6 K/mm3 (0-0.3); Eosinophils Percent Auto 13.9 % (0-4.4); Immature Granulocyte Absolute 0.01 K/mm3 (0.00-0.031); Lymphocytes Absolute Auto 1.54 K/mm3 (0.9-3.2); Monocytes Absolute Auto 0.3 K/mm3 (0.1-0.6); Neutrophils Absolute Auto 2.2 K/mm3 (1.3-6.7)
[2023-03-13 06:49] LABS: Alanine Aminotransferase 95 U/L (6-35); Albumin Level 3.2 g/dL (3.5-5.1); Alkaline Phosphatase 114 U/L (38-126); Anion Gap 8 mmol/L (8-16); Aspartate Amino Transferase 72 U/L (14-36); Bilirubin,Total 1.1 mg/dL (0.2-1.3); Blood Urea Nitrogen 8 mg/dL (7-17); Calcium 8.3 mg/dL (8.4-10.2); Carbon Dioxide 23 mmol/L (22-30); Chloride 106 mmol/L (98-107); Estimated CRCL calculation 77 ml/min; Estimated Glomerular Filt Rate > 60; Glucose 72 mg/dL (65-110); Lipase 157 U/L (23-300); Potassium 4.1 mmol/L (3.4-5.0); Sodium 137 mmol/L (137-145)
[2023-03-13] MEDS: PANTOPRAZOLE SODIUM IV 40 MG VIAL IV PUSH (09:10)
--- NOTE | 2023-03-13 10:01 | PM.DS ---
DS: Admitting Diagnosis Discharge Date 03/12/2023 Admitting Diagnosis ABD DS: Discharge Diagnosis Discharge Diagnosis (1) Acute pancreatitis: Qualifiers: Pancreatitis type: drug induced Acute pancreatitis complication: no infection or necrosis Qualified Code(s): K85.30 - Drug induced acute pancreatitis without necrosis or infection Code(s): K85.90 - Acute pancreatitis without necrosis or infection, unspecified Status: Acute (2) Elevated liver enzymes: Code(s): R74.8 - Abnormal levels of other serum enzymes Status: Acute Plan Acute pancreatitis -Discontinue Wegovy GLP-1 -Advance diet slowly as tolerated avoid spicy foods and caffiene in moderation -Increase oral hydration -Follow-up with PCP LATESHA -Will need referral to GI for EGD/colonoscopy FMX of colon cancer DS: Summary Hospital Course Reason for hospitalization: Acute Pancretitis Hospital Course: Patient is a 52-year-old female who presented to the emergency department complaints abdominal pain.? Patient reports the abdominal pain began 2 days ago however has worsened has been unable to tolerate any intake with nausea no vomiting, and diarrhea.? Patient rates pain a 10/10 prior to admission.? Patient does report a past medical history of hypertension, diverticulosis,hypothyroidism, and anxiety.? Patient denies any chest pain, shortness a breast, vomiting, fever, chills, flank pain.? Patient reports she is currently on a code B which is initiated 6 months ago however due to continued diarrhea and abdominal pain her primary care physician lower dose but patient was not able to obtain dose current dose.? Patient's labs unremarkable other than an elevated lipase at 1204 and Cr 1.10.? At time of assessment patient reports improvement to abdominal pain following IV fluids NPO status.? Patient admitted for observation for acute pancreatitis. CT ABD showing esophagitis/gastritis. Patient was kept overnight with continued IV fluids and lipase improved, advanced diet and was tolerated with very mild discomfort and no tenderness to palpation. Lipase improved and normalized with treatment and patient was discharged to home. Recommended patient discontinue taking the Wegovy and request a referral to GI from her PCP. Status at Discharge Functional status at discharge: independent ambulation Time Spent with Patient Time attestation: Total time spent providing and/or coordinating discharge services: Time spent: Greater than 30 minutes Exam Narrative: Physical Exam: - GENERAL: Alert and oriented x 3. No acute distress. Well-nourished. - EYES: EOMI. No scleral icterus. PERRLA. - HENT: Moist mucous membranes. No cervical lymphadenopathy. - LUNGS: Clear to auscultation bilaterally. No accessory muscle use. - CARDIOVASCULAR: Regular rate and rhythm. No murmur. No JVD. S1-S2 - ABDOMEN: Soft, no tenderness and non-distended. No palpable masses. - EXTREMITIES: No edema. Non-tender -SKIN: No rashes or lesions. Skin warm, dry. - NEUROLOGIC: No focal neurological deficits. CN II-XII grossly intact - PSYCHIATRIC: Appropriate mood and affect. Good judgement and insight. No visual or auditory hallucinations. No suicidal or homicidal ideation. DS: Data Data Completed and Pending Labs on day of discharge: Labs from last 24 hours 03/13/23 03/13/23 06:20 06:19 WBC 4.6 RBC 4.22 Hgb 13.5 Hct 40.0 MCV 94.8 MCH 32.0 MCHC 33.8 RDW 12.2 Plt Count 133 L MPV 12.2 H Immature Gran % (Auto) 0.2 Neut % (Auto) 46.7 Lymph % (Auto) 33.4 [place] % (Auto) 5.6 Eos % (Auto) 13.9 H Baso % (Auto) 0.2 Lymph # (Auto) 1.54 [place] # (Auto) 0.3 Eos # (Auto) 0.6 H Baso # (Auto) 0.0 Abs Immat Gran (auto) 0.01 Absolute Neuts (auto) 2.2 Absolute Nucleated RBC 0.0 Nucleated RBC % 0.0 Sodium 137 Potassium 4.1 Chloride 106 Carbon Dioxide 23 Anion Gap 8 BUN 8 Creatinine 0.90 Estim Creat Clear Calc 77
== END 2023-03-13 13:10 | disposition home or self-care (01) | DRG 440 ==
LOC: ANHED 22:29 → ANH3MEDSUR 03-12 00:50
PROVIDERS: Admitting Provider Internal Medicine; Emergency Provider Emergency Medicine; PCP Family Medicine; Visit Provider Nurse Practitioner Family
DX: K85.30 Drug induced acute pancreatitis without necrosis or infection (principal); N30.10 Interstitial cystitis (chronic) without hematuria; T50.995A Adverse effect of other drugs, medicaments and biological substances, initial encounter; K57.30 Diverticulosis of large intestine without perforation or abscess without bleeding; E03.9 Hypothyroidism, unspecified; E66.9 Obesity, unspecified; R03.0 Elevated blood-pressure reading, without diagnosis of hypertension; R74.8 Abnormal levels of other serum enzymes; F41.9 Anxiety disorder, unspecified; Z86.718 Personal history of other venous thrombosis and embolism
CPT/HCPCS: 36415; 74177; 80053; 80061; 81001; 83036; 83690; 85025; 96361; 96374; 96375; 96376; 99285; A9270; C9113; G0378; J1885; J2270; J2405; J7030; Q9967

== ENCOUNTER → 2023-04-08 12:42 | Outpatient (CLI) | payer BC, SELFPAY ==
--- NOTE | ~2023-04-08 | MM_ITS ---
EXAMINATION: MM screening bi BI w lacey HISTORY: Screening mammogram TECHNIQUE: Craniocaudal and mediolateral oblique 3-D tomosynthesis images were obtained and synthetic 2-D images were generated. CAD analysis was submitted and interpreted. COMPARISON: 10/27/2019, 01/21/2018 bilateral screening mammogram examinations BREAST PARENCHYMAL COMPOSITION: There are scattered areas of fibroglandular density. FINDINGS: There is no evidence of suspicious mass, calcification, or architectural distortion to sugg est malignancy in either breast. There has been no suspicious interval change. IMPRESSION: 1. No mammographic evidence of malignancy. 2. Recommend routine screening mammography in one year. BI-RADS Category 1: Negative Reviewed, dictated and finalized at location A. [employer]
== END ==
PROVIDERS: PCP Obstetrics & Gynecology Gynecology; Visit Provider Obstetrics & Gynecology Gynecology
DX: Z12.31 Encounter for screening mammogram for malignant neoplasm of breast (principal)
CPT/HCPCS: 77063; 77067

== ENCOUNTER 2023-05-12 02:40 | Day surgery (SDC) | payer BC, SELFPAY ==
[2023-04-29 11:34] VITALS: BMI 34.7
--- NOTE | 2023-05-09 09:50 | SUR.PREOP ---
Patient called regarding upcoming procedure. Voicemail left regarding appointment times.
[2023-05-12 09:48] VITALS: BP 131/87; PULSE 86; RESP 20; TEMP 37.1; O2SAT 98
[2023-05-12] MEDS: LACTATED RINGERS 1,000 ML 150 ML IV CONT (10:09)
--- NOTE | 2023-05-12 10:12 | SUR.PREOP ---
Unable to complete urine test, Dr. Cam notified, okay to skip test as pt. states last period was four years ago.
--- NOTE | 2023-05-12 10:25 | PM.HPGS ---
History of Present Illness History of Present Illness Consent: Risks, benefits, and alternatives have been discussed and questions answered. Patient agrees to proceed with procedure. Chief complaint: neoplasm screening Narrative: Katelyn Malave is a 52 year old female here for first screening colonoscopy Review of Systems Constitutional: Constitutional: Denies headache(s) and Denies weakness Eyes: Eyes: Denies blurry vision ENT: Reports Normal hearing present, Denies headache(s) and Denies neck pain Cardiovascular: Cardiovascular: Denies chest pain and Denies dyspnea Respiratory: Respiratory: Denies dyspnea Gastrointestinal: Gastrointestinal: Reports no additional gastrointestinal complaints Genitourinary: Genitourinary: Denies dysuria Musculoskeletal: Musculoskeletal: Denies neck pain Integumentary/Breasts: Skin/Breast: Denies dry skin Neurologic: Reports Normal hearing present, Denies headache(s) and Denies weakness Psychiatric: Psychiatric: Denies anxiety Endocrine: Endocrine: Denies change in body appearance Hematologic/Lymphatic: Hematologic/Lymphatic: Denies easy bleeding Allergic/Immunologic: Allergic/Immunologic: Denies urticaria PMFSH Past Medical History Medical History Carpal tunnel syndrome, bilateral Diverticulitis large intestine DVT (deep venous thrombosis) Elevated blood pressure, situational Hypothyroid Interstitial cystitis Obesity Retinal vein occlusion of left eye Family History Family History Mother Diabetes mellitus Father Family history of coronary artery disease, Onset Age: 72 Family history of atrial fibrillation, Onset Age: 72 Family history of congestive heart failure, Onset Age: 72 Cerebrovascular accident, Onset Age: 72 Family history of colonic diverticulitis Grandparent Carcinoma of colon Social History Social History Smoking status: Never smoker Alcohol intake: never Drinks per week: 2 Substance use: never Substance use type: does not use Do You Feel Safe in your Home?: Yes Lack of Transportation: No Lack of Food: Never True Current Housing: I Have Housing Concerned About Future Housing: No Difficulty Paying Gas/Electric Bills: No Difficulty Paying for Meds: No Currently Unemployed: No Education: High School Diploma/GED Difficulty w/ Childcare or Family Care: No Living arrangements: with family Spiritual care concerns: No Meds Home Medications and Allergies Home Medications Medication Instructions Recorded Confirmed Type famotidine 40 mg tablet 40 mg PO DAILY 03/05/22 04/29/23 History ondansetron HCl 4 mg tablet 4 mg PO Q8H PRN nausea and 11/01/22 04/29/23 Rx vomiting #30 tabs dicyclomine 10 mg capsule 10 mg PO BID PRN abdominal pain 12/11/22 04/29/23 Rx #30 caps methocarbamol 750 mg tablet 750 mg PO TID PRN muscle pain #30 01/31/23 04/29/23 Rx tabs tramadol 50 mg tablet 50 mg PO Q6H PRN pain #20 tabs 01/31/23 04/29/23 Rx atorvastatin 10 mg tablet 10 mg PO QHS #90 tabs 02/12/23 04/29/23 Rx levothyroxine 150 mcg tablet 150 mcg PO DAILY #90 tabs 02/21/23 04/29/23 Rx (Synthroid) bupropion HCl 300 mg 24 hr tablet, 300 mg PO DAILY 03/12/23 04/29/23 History extended release (Wellbutrin XL) clotrimazole-betamethasone 1 1 applic topical BID PRN yeast 03/12/23 04/29/23 History %-0.05 % topical cream omeprazole 40 mg PO DAILY PRN Heartburn 03/12/23 04/29/23 History spironolactone 50 mg tablet 50 mg PO DAILY 03/12/23 04/29/23 History phentermine 37.5 mg capsule 37.5 mg PO DAILY #30 caps 04/25/23 04/29/23 Rx sertraline 100 mg tablet 200 mg PO DAILY #180 tabs 05/12/23 Rx Allergies Allergy/AdvReac Type Severity Reaction Status Date / Time sulfamethoxazole Allergy Mild Rash Verified 05/12/23 09:47 trimethoprim Allergy Mild
[2023-05-12 10:41] VITALS: BP 91/53; PULSE 68; RESP 20; O2SAT 94
[2023-05-12 10:51] VITALS: BP 104/62; PULSE 65; RESP 20; O2SAT 95
[2023-05-12 11:01] VITALS: BP 112/75; PULSE 63; RESP 19; O2SAT 97
--- NOTE | 2023-05-14 09:06 | WPDANESEPPF ---
Anes - Initial Pre Proc Eval Procedure: Operation Date: 05/12/23 11:00 Proposed Procedures p Screening Colonoscopy - Jeff Arredondo MD Date/Time: 05/14/23 09:06 Surgeon: Jeff Arredondo MD Pre Op Diagnosis: neoplasm screening Patient Data Age: 52 Gender: F Height: 1.68 m Weight: 97.3 kg Last Vital Signs Temp 98.7 F 05/12/23 09:48 Pulse 63 05/12/23 11:01 Resp 19 05/12/23 11:01 BP 112/75 05/12/23 11:01 Pulse Ox 97 05/12/23 11:01 O2 Del Method Room Air 05/12/23 11:01 Allergies Allergy/AdvReac Type Severity Reaction Status Date / Time sulfamethoxazole Allergy Mild Rash Verified 05/12/23 09:47 trimethoprim Allergy Mild Rash Verified 05/12/23 09:47 Sulfa (Sulfonamide Allergy Unknown Unknown Verified 05/12/23 09:47 Antibiotics) sulfamethizole Allergy Unknown Skin Verified 05/12/23 09:47 Reaction Home Medications Medication Instructions Recorded Confirmed Type famotidine 40 mg tablet 40 mg PO DAILY 03/05/22 04/29/23 History ondansetron HCl 4 mg tablet 4 mg PO Q8H PRN nausea and 11/01/22 04/29/23 Rx vomiting #30 tabs dicyclomine 10 mg capsule 10 mg PO BID PRN abdominal pain 12/11/22 04/29/23 Rx #30 caps methocarbamol 750 mg tablet 750 mg PO TID PRN muscle pain #30 01/31/23 04/29/23 Rx tabs tramadol 50 mg tablet 50 mg PO Q6H PRN pain #20 tabs 01/31/23 04/29/23 Rx atorvastatin 10 mg tablet 10 mg PO QHS #90 tabs 02/12/23 04/29/23 Rx levothyroxine 150 mcg tablet 150 mcg PO DAILY #90 tabs 02/21/23 04/29/23 Rx (Synthroid) bupropion HCl 300 mg 24 hr tablet, 300 mg PO DAILY 03/12/23 04/29/23 History extended release (Wellbutrin XL) clotrimazole-betamethasone 1 1 applic topical BID PRN yeast 03/12/23 04/29/23 History %-0.05 % topical cream omeprazole 40 mg PO DAILY PRN Heartburn 03/12/23 04/29/23 History spironolactone 50 mg tablet 50 mg PO DAILY 03/12/23 04/29/23 History phentermine 37.5 mg capsule 37.5 mg PO DAILY #30 caps 04/25/23 04/29/23 Rx sertraline 100 mg tablet 200 mg PO DAILY #180 tabs 05/12/23 Rx Patient hx anesthesia problems: none Family hx anesthesia problems: none Results Review: All pre-operative results and documents have been reviewed as part of the pre-operative evaluation. [facility] Past Medical History Medical History Carpal tunnel syndrome, bilateral Diverticulitis large intestine DVT (deep venous thrombosis) Elevated blood pressure, situational Hypothyroid Interstitial cystitis Obesity Retinal vein occlusion of left eye Family History Family History Mother Diabetes mellitus Father Family history of coronary artery disease, Onset Age: 72 Family history of atrial fibrillation, Onset Age: 72 Family history of congestive heart failure, Onset Age: 72 Cerebrovascular accident, Onset Age: 72 Family history of colonic diverticulitis Grandparent Carcinoma of colon Social History Social History Smoking status: Never smoker Alcohol intake: never Drinks per week: 2 Substance use: never Substance use type: does not use Do You Feel Safe in your Home?: Yes Lack of Transportation: No Lack of Food: Never True Current Housing: I Have Housing Concerned About Future Housing: No Difficulty Paying Gas/Electric Bills: No Difficulty Paying for Meds: No Currently Unemployed: No Education: High School Diploma/GED Difficulty w/ Childcare or Family Care: No Living arrangements: with family Spiritual care concerns: No Anes - Eval Final PreProcedure Day of Procedure 05/14/23 09:06 Patient weight: obese Heart: regular rate and rhythm Lungs: clear to auscultation Airway: Mallampati scale class II Neurological: alert and oriented Last oral intake: >/= 8 hours ASA classification: III Emergent: no Anesthetic
== END 2023-05-12 11:13 | disposition home or self-care (01) ==
PROVIDERS: Referring Provider Obstetrics & Gynecology Gynecology; Visit Provider Internal Medicine Gastroenterology
PROC: 0DJD8ZZ Inspection of Lower Intestinal Tract, Via Natural or Artificial Opening Endoscopic (ICD-10-PCS; CPT 45378; principal; 2023-05-12 11:00)
DX: Z12.11 Encounter for screening for malignant neoplasm of colon (principal); K64.8 Other hemorrhoids; K57.30 Diverticulosis of large intestine without perforation or abscess without bleeding; I10 Essential (primary) hypertension; E03.9 Hypothyroidism, unspecified; G56.03 Carpal tunnel syndrome, bilateral upper limbs; K57.32 Diverticulitis of large intestine without perforation or abscess without bleeding; E66.9 Obesity, unspecified; Z68.34 Body mass index [BMI] 34.0-34.9, adult; Z79.891 Long term (current) use of opiate analgesic; Z86.718 Personal history of other venous thrombosis and embolism; Z80.0 Family history of malignant neoplasm of digestive organs; Z82.49 Family history of ischemic heart disease and other diseases of the circulatory system
CPT/HCPCS: 45378; J2704; J7120

== ENCOUNTER 2024-05-17 08:39 | Outpatient (CLI) | payer BC, SELFPAY ==
--- NOTE | ~2024-05-17 | XR_ITS ---
AP view of the pelvis and AP and lateral views of the right hip Clinical history: Pain Findings: No acute fracture or dislocation is seen. Osseous alignment is anatomic. Bilateral hip and SI joint spaces are preserved. Soft tissues are unremarkable. IUD in place. Impression: No significant abnormality is seen. Reviewed, dictated and finalized at location . Impression: No significant abnormality is seen.
--- NOTE | ~2024-05-17 | XR_ITS ---
Thoracic spine: Clinical Indication: Radiculopathy AP and lateral views were performed. No fracture is seen. There is normal alignment of the vertebrae. There is mild degenerative change o f the thoracic spine. Paravertebral soft tissues appear normal. Impression: Mild degenerative change. Reviewed, dictated and finalized at location . Impression: Mild degenerative change.
--- NOTE | ~2024-05-17 | XR_ITS ---
Lumbosacral Spine: AP and lateral views Clinical History: Pain Findings: The normal lordotic curve is maintained. No fracture or subluxation seen. There is mild deg enerative disc change in the lumbar spine. There is advanced facet arthropathy from L3 through S1. Th e sacroiliac joints are normally outlined. Impression: Mild to moderate degenerative spondylitic changes, as above. Reviewed, dictated and finalized at location M. Impression: Mild to moderate degenerative spondylitic changes, as above.
== END 2024-05-17 08:40 | disposition home or self-care (01) ==
LOC: GOSHIMG 08:40
PROVIDERS: PCP Family Medicine; Visit Provider Nurse Practitioner Family
DX: M25.551 Pain in right hip (principal); M51.369 Other intervertebral disc degeneration, lumbar region without mention of lumbar back pain or lower extremity pain; M51.34 Other intervertebral disc degeneration, thoracic region
CPT/HCPCS: 72070; 72100; 73502

== ENCOUNTER 2025-01-11 08:02 | Outpatient (CLI) | payer BC, SELFPAY ==
--- OUTSIDE RECORDS SUMMARY | 2025-01-11 08:09 | XMS_ITS | Clinical Summary ---
Author Organization [facility] Address [address] [place] [address] Care Team Providers Care Merchandise Shopper Name Role Phone Lacho Alvarez MD Primary Care Provider [phone]- [phone] Source Comments [facility],non-owned Affiliates and Associated Physician Practices is amultiple site organization consisting of ambulatory clinics and hospital sitesin [place], [place], [place] and [place]. This disclosure is being madepursuant to the Care Everywhere program and may not contain all information available regarding this patient. Last updated 17.[facility] Allergies Active Allergy Reactions Criticality Noted Date Comments Sulfamethoxazole W-Trimethoprim Urticaria High 04/2012 Medications * Be aware that medications may not be up to date on this document. Alwaysverify current medications with the patient. sertraline (ZOLOFT) 100 MG tablet Take 200 mg by mouth once daily. Active levothyroxine (TIROSINT) 125 MCG capsule Take 200 mcg by mouth daily before breakfast Active triamcinolone 0.1 % cream - AQUAPHOR Ointment 50:50 with LCD 5 % CREA Apply to affected area 2 times daily as needed. Active vitamin D2 (ERGOCALCIFEROL ) 40371 UNIT capsule Take 1 Cap by mouth Two times a week. Active Cetirizine HCl (ZYRTEC PO) Active Family History Medical History Relation Name Comments CAD (Coronary Artery Disease) Brother Hypertension Brother CAD (Coronary Artery Disease) Father Diabetes - Type 2 Father Hypertension Father Asthma Mother Cancer - Breast Mother Diabetes - Type 2 Mother Hypertension Mother Other - Hepatic/Liver Paternal Grandfather Cancer - Colon Paternal Grandmother Relation Name Status Comments Brother Father Mother Paternal Grandfather Paternal Grandmother Social History Tobacco Use Types Packs/Day Years Used Date Smoking Tobacco: Never Smokeless Tobacco: Never Alcohol Use Standard Drinks/Week Comments Yes 0 (1 standard drink = 0.6 oz pur e alcohol) rare Comments No Sex and Gender Information Value Date Recorded Sex Assigned at Not on file 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 Gender Identity Not on file Sexual Orientation Not on file Last Filed Vital Signs Vital Sign Reading Time Taken Comments Blood Pressure 138/84 10/26/2018 9:10 AM CDT Pulse 57 10/26/2018 9:16 AM CDT Temperature 37.2 C (99 F) 10/26/2018 8:51 AM CDT Respiratory Rate 15 10/26/2018 9:16 AM CDT Oxygen Saturation 97% 10/26/2018 9:16 AM CDT Inhaled Oxygen Concentration - - Weight 122.5 kg (270 lb) 10/26/2018 7:46 AM CDT Height 170.2 cm (5' 7) 10/26/2018 7:46 AM CDT Body Mass Index 42.29 10/26/2018 7:46 AM CDT Plan of Treatment Health Maintenance Due Date Last Done Comments COLOGUARD (AGES 45-75) - COL ON CA SCREENING 1971 COLON MONITORING 1971 COLONOSCOPY - COLON CA SCREENING 1971 CT COLONOGRAPHY - COLON CA SCREENING 1971 Colorectal Cancer Screening 1971 FIT - COLON CA SCREENING 1971 FLEX SIG - COLON CA SCREENING 1971 LIPID TESTING 1971 MAMMOGRAM 1971 HIV SCREENING 11/27/1986 HEPATITIS C SCREENING 11/23/1989 DTAP/TDAP/TD VACCINES (1 - Tdap) 11/27/1990 HEPATITIS B VACCINE (1 of 3 - 19+ 3-dose series) 11/27/1990 SCREENING FOR DIABETES 08/06/2018 PNEUMOCOCCAL VACCINE 50+ (1 of 1 - PCV) 11/27/2021 ZOSTER VACCINE (1 of 2) 11/27/2021 DEPRESSION SCREENING 03/03/2024 COVID-19 VACCINE (1 - 2023-2 5 season) 2024 INFLUENZA VACCINE (#1) 2024 HIB VACCINE Aged Out No longer eligi ble based on patient's age to complete this topic HPV VACCINE Aged Out No longer eligi ble based on patient's age to complete this topic MENINGOCOCCAL (Group B) VACC INE SHARED DECISION-MAKING Aged Out No longer eligibl e based on patient's age to complete this topic MENINGOCOCCAL GROUPS A/C/Y/W VACCINE Aged Out No longer eligible b ased on patient's age to complete this topic Insurance ANTHEM ANTHEM Care Teams Merchandise Shopper Relationship Specialty Start Date End Date Lacho Alvarez MD [address] [place] [id number] PCP - General Family Medicine 05/25/18
--- OUTSIDE RECORDS SUMMARY | 2025-01-11 08:09 | XMS_ITS | Clinical Summary ---
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 Gender Identity Not on file Sexual Orientation Not on file Plan of Treatment Health Maintenance Due Date Last Done Comments Cervical Cancer Screening Pa p Smear (Age 30 to 64) Every 3 Years 1971 Colorectal Cancer Screening Colonoscopy (10 Years) 1971 Annual Physical 11/27/1974 Hepatitis C 11/27/1989 DTaP, Tdap and Td Vaccines ( 1 - Tdap) 11/27/1990 Hepatitis B Vaccines (1 of 3 - 19+ 3-dose series) 11/27/1990 Cervical Cancer Screening Pa p with HPV Testing (Age 30 to 64) Every 5 Years 11/27/2001 Cervical Cancer Screening with HPV 11/27/2001 Mammogram Screening 2011 Pneumococcal Vaccine: 50+ Ye ars (1 of 1 - PCV) 11/27/2021 Zoster Vaccines (1 of 2) 11/27/2021 COVID-19 Vaccine ( - 2024-2 6 season) 2024 Influenza Adult (#1) 2024 Hepatitis A Vaccines Aged Out No long er eligible based on patient's age to complete this topic Meningococcal B Vaccine Aged Out No l onger eligible based on patient's age to complete this topic Meningococcal Vaccine Aged Out No ivette kate eligible based on patient's age to complete this topic RSV Immunizations Under 20 Months Aged Out No longer eligible based on patient's age to complete this topic Insurance [employer] MEDICARE Care Teams Emergency Room Technician Relationship Specialty Start Date End Date Florinda Singh NP [address] [place] [address] PCP - General NURSE PRACTITIONER 01/13/19
--- OUTSIDE RECORDS SUMMARY | 2025-01-11 08:09 | XMS_ITS | Clinical Summary ---
Author Organization [facility] Address [address] [place] [address] Phone Care Team Providers Care Ict Managers Name Role Phone Lacho Alvarez MD Primary Care Provider [phone]- [phone] Allergies Active Allergy Reactions Criticality Noted Date Comments Sulfamethoxazole-Trimethoprim Hives High 2012 Medications allopurinol (ZYLOPRIM) 300 MG Tablet 05/15/2022 Active amLODIPine (NORVASC) 10 MG Tablet 05/13/2022 Active atorvastatin (LIPITOR) 10 MG Tablet 05/13/2022 Active buPROPion (WELLBUTRIN) 300 MG TABLET SR 24 HR XL tablet 03/22/2022 Active Synthroid 150 MCG Tablet 05/13/2022 Active Wegovy 0.25 MG/0.5ML Solution Auto-injector 05/07/2022 Activ e ondansetron (ZOFRAN) 4 MG Tablet TAKE 1 TABLET BY MOUTH EVERY 6 HOURS NEEDED NAUSEA 05/01/2022 Active sertraline (ZOLOFT) 100 MG Tablet 02/18/2022 Active spironolactone (ALDACTONE) 50 MG Tablet 02/18/2022 Active fluconazole (DIFLUCAN) 150 MG TabletIndication s:Antibiotic-ind uced yeast infection 1 tab now, repeat in 3 days. 2 Tablet 06/23/2024 Active Active Problems No known active problems Social History Tobacco Use Types Packs/Day Years Used Date Smoking Tobacco: Never Smokeless Tobacco: Never Alcohol Use Standard Drinks/Week Comments Not Currently 0 (1 standard drink = 0.6 oz pur e alcohol) Sexually Active Control Partners Comments Not Currently Comments Unknown Sex and Gender Information Value Date Recorded Sex Assigned at Not on file Legal Sex Female 12:20 AM CDT Gender Identity Not on file Sexual Orientation Not on file Last Filed Vital Signs Vital Sign Reading Time Taken Comments Blood Pressure 130/74 06/23/2024 9:04 AM CDT Pulse 75 06/23/2024 9:04 AM CDT Temperature 36.7 C (98.1 F) 06/23/2024 9:04 AM CDT Respiratory Rate 18 06/23/2024 9:04 AM CDT Oxygen Saturation 96% 06/23/2024 9:04 AM CDT Inhaled Oxygen Concentration - - Weight - - Height - - Body Mass Index - - Plan of Treatment Health Maintenance Due Date Last Done Comments Hepatitis C Virus (HCV) Screening 1971 Mammogram 1971 TdaP Immunization 1971 Hepatitis B Immunization (1 of 3 - 19+ 3-dose series) 11/27/1990 Pap Smear 11/27/1992 Cervical Cancer Screening (CCS) 11/27/2001 HPV/Cotest 11/27/2001 Cologuard 11/27/2016 Colonoscopy 11/27/2016 Colorectal Cancer Screening 11/27/2016 Immunochemical Fecal Occult Blood 11/27/2016 Pneumococcal Immunization (5 0+ years) (1 of 1 - PCV) 11/27/2021 Zoster Immunization (1 of 2) 11/27/2021 Influenza Immunization (#1) 2024 SARS-COV-2 Immunization (3 - season) 2024 06/06/2020, 05/16/2020 Respiratory Syncytial Virus (RSV) Immunization (Adult) (1 - 1-dose 75+ series) 11/27/2046 Human Papillomavirus (HPV) Immunization Aged Out No longer eligible b ased on patient's age to complete this topic Meningococcal Immunization (ACWY) Aged Out No longer eligible b ased on patient's age to complete this topic Rotavirus Immunization Aged Out No lo nger eligible based on patient's age to complete this topic Insurance [facility] Care Teams Ict Managers Relationship Specialty Start Date End Date Lacho Alvarez MD [address] [place] [id number] PCP - General Family Medicine 09/10/21
--- OUTSIDE RECORDS SUMMARY | 2025-01-11 08:09 | XMS_ITS | Encounter Summary ---
Author Organization [facility] Address [address] [place] [id number] Care Team Providers Care Insurance Adjustor Name Role Phone Florinda Singh NP Primary Care Provider Encounter Details Date Type Department Care Team (Late st Contact Info) Description 05/10/2022 CoverMe Message Enc [facility] Family Medicine [address] [address] [facility] Provider Overdue Annual Physical Social History Tobacco Use Types Packs/Day Years Used Date Smoking Tobacco: Never Assessed Comments Unknown Sex and Gender Information Value Date Recorded Sex Assigned at Not on file 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
--- OUTSIDE RECORDS SUMMARY | 2025-01-11 08:09 | XMS_ITS | Clinical Summary ---
Author Organization [facility] Address [address] [place] [address] Care Team Providers Care Rubber Compounder Formulator Name Role Phone Lacho Alvarez MD Primary Care Provider [phone] [phone] Allergies Active Allergy Reactions Criticality Noted Date Comments Sulfa (Sulfonamide Antibiotics) Urticaria High 04/2012 Medications buPROPion XL (WELLBUTRIN XL) 300 mg 24 hr tablet Take 1 tablet (300 mg total) by mouth every morning 03/03/19 Active LORazepam (ATIVAN) 0.5 mg tablet Take by mouth 3 (three) times a day as needed for anxiety 07/03/19 24 Active Synthroid 150 mcg tablet Take 1 tablet (150 mcg total) by mouth heel padder before breakfast 03/03/19 00 Active cyanocobalamin (Vitamin B-12) 500 mcg tablet Take 1 tablet (500 mcg total) by mouth daily Start post Surgery 90 tablet 3 02/18/20 24 025 Active polyethylene glycol (MIRALAX) 17 gram/dose bulk powder Take 17 g by mouth 2 (two) times a day Start post-surgery 1020 g 02/18/20 24 Active multivitamin with minerals tablet Take 2 tablets by mouth daily Start taking post surgery 60 tablet 11 02/18/20 24 025 Active clotrimazole-betam ethasone (LOTRISONE) cream Apply topically as needed (yeast) 02/19/20 Active Nystop powder Apply 1 Application topically 2 (two) times a day as needed 02/19/20 Active dicyclomine (BENTYL) 10 mg capsule Take 1 capsule (10 mg total) by mouth as needed Active cetirizine (ZyrTEC) 10 mg tablet Take 1 tablet (10 mg total) by mouth every morning Active calcium citrate-vitamin D3 500 mg-12.5 mcg (500 unit) tablet,chewable Take 1 tablet by mouth 3 (three) times a day Active omeprazole (PriLOSEC) 40 mg capsule Take 1 capsule (40 mg total) by mouth daily START POST SURGERY 30 capsule 2 05/25/19 Active ondansetron ODT (ZOFRAN-ODT) 4 mg disintegrating tabletIndications: Nausea and Vomiting Take 1 tablet (4 mg total) by mouth every 6 (six) hours as needed for nausea or vomiting 20 tablet 05/25/19 Active tiZANidine (ZANAFLEX) 4 mg tablet Take 1 tablet (4 mg total) by mouth 3 (three) times a day as needed 05/18/19 Active atorvastatin (LIPITOR) 10 mg tablet Take 1 tablet (10 mg total) by mouth nightly 05/26/19 Active sertraline 200 mg capsule Take 1 capsule by mouth daily 09/06/19 25 Active Active Problems Problem Noted Date Diagnosed Date High anion gap metabolic acidosis 05/24/2024 Assessment & Plan (05/24/2024 2:35 PM CDT): On admission HCO3 18, resolved with IVF History of Penelope-en-Y gastric bypass 05/24/2024 Assessment & Plan (05/24/2024 2:35 PM CDT): - on 03/15/24 - seen by her surgeon recently and has been progressing appropriately post-op - Also was recommended to eat 5 small meals per day, get in 60-80 grams of protein and only get carbs through fruits and vegetables. cut food into small pieces, chew well and take at least 20-30 minutes to eat a small meal. Hypothyroidism 05/24/2024 Assessment & Plan (05/24/2024 2:35 PM CDT): On thyroxin Anxiety 05/24/2024 Assessment & Plan (05/24/2024 2:35 PM CDT): On Wellbutrin and 200 mg Zoloft Esophageal dysphagia 05/23/2024 Assessment & Plan (05/24/2024 2:35 PM CDT): For the past 2 weeks, patient has been having intermittent dysphagia with certain solid food (mostly checked) that resolves shortly. She notes it has been more often and progressive. Usually resolved with vomiting. On admission patient noted difficulty with secretions. Symptoms improved during her ED stay EGD 05/24 without gross lesion in the esophagus, biopsies pending, arjun-en-Y with edema at anastomosis, normal jejunum -omeprazole 40mg daily for 3 months and zofran ODT for n/v. -await pathology results -per MIS ok to continue regular diet Esophageal dysphagia 05/23/2024 Obesity 11/11/2023 Assessment & Plan (05/24/2024 2:35 PM CDT): Weight loss of >30lbs since Penelope-en-Y - BMI 35.5 Resolved Problems Problem Noted Date Diagnosed Date Resolved Date Morbid (severe) obesity due to excess calories 03/15/2024 04/26/2024 BMI 37.0-37.9, adult 07/31/2023 025 Surgical History Surgery Date Site/Laterality Comments APPENDECTOMY 1986 COLONOSCOPY 05/02/2023 - 06/01/2023 DIAGNOSTIC LAPAROSCOPY 1989 CHOLECYSTECTOMY 2014 MEDIAL COLLATERAL LIGAMENT A ND LATERAL COLLATERAL LIGAMENT REPAIR, KNEE 03/03/2017 - 03/02/2018 Right ESOPHAGOGASTRODUODENOSCOPY 03/03/2018 - 03/02/2019 Medical History Medical History Date Comments Anxiety 1989 Deep vein thrombosis (HCC) 2017 Depression 1989 Diverticulitis of colon Fibromyalgia, primary Fractures 1981, 2017 GERD (gastroesophageal reflux disease) Hypercholesteremia Hyperlipidemia Hypertension Irritable bowel syndrome Morbid obesity (HCC) 1997 Pulmonary embolism 2017 Sleep apnea 2020 Thyroid disease 1993 Urinary incontinence 1997 Family History Medical History Relation Name Comments Depression Brother 1 Edilson Learning disabilities Brother 1 Edilson Obesity Brother 1 Edilson Diabetes Brother 2 Roberto Obesity Brother 2 Roberto Depression Daughter Nelida Arthritis Father Ino Family history of arthritis - (Added by TW Conv) Bleeding Disorder Father Ino COPD Father Ino Clotting disorder Father Ino Depression Father Ino Heart disease Father Ino Family history of cardiac disorder - (Added by TW Conv) Heart failure Father Ino Hyperlipidemia Father Ino Hypertension Father Ino Family history of hypertension - (Added by TW Conv) Mental illness Father Ino Chronic menta l illness - (Added by TW Conv) Obesity Father Ino Seizures Father Ino Family history of seizures - (Added by TW Conv) Stroke Father Ino Family history of cerebrovascular accident (CVA) - (Added by TW Conv) Arthritis Mother Fernanda Asthma Mother Fernanda Cancer Mother Fernanda Family history of malignant neoplasm - (Added by TW Conv) Depression Mother Fernanda Diabetes Mother Fernanda Family history of diabetes mellitus - (Added by TW Conv) Hyperlipidemia Mother Fernanda Hypertension Mother Fernanda Kidney disease Mother Fernanda Family histor y of kidney disease - (Added by TW Conv) Lung disease Mother Fernanda Family history of lung disease - (Added by TW Conv) Mental illness Mother Fernanda Chronic menta l illness - (Added by TW Conv) Obesity Mother Fernanda Sleep apnea Mother Fernanda Colon cancer Paternal Grandmother colon ca Depression Son Fahad Anesthesia problems Neg Hx Relation Name Status Comments Brother 1 Edilson Brother 2 Roberto Daughter Nelida Father Ino CVA age 55, DVT /PE following leg trauma Mother Fernanda Alive Paternal Grandmother colon ca Son Fahad Social History Tobacco Use Types Packs/Day Years Used Date Smoking Tobacco: Never Smokeless Tobacco: Never Tobacco Cessation:Counseling Given: Not Answered AUDIT-C Answer Date Recorded Q1: How often do you have a drink containing alcohol? Never 05/24/2024 Q2: How many drinks containi ng alcohol do you have on a typical day when you are drinking? Patient does not drink Q3: How often do you have si x or more drinks on one occasion? Never 05/24/2024 Personal Safety Answer Date Recorded Have you ever been in or are you currently in a harmful physical or emotional relationship or is someone making you feel afraid or unsafe? 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 Gender Identity Not on file Sexual Orientation Not on file Last Filed Vital Signs Vital Sign Reading Time Taken Comments Blood Pressure 102/71 09/22/2024 8:13 AM CDT Pulse 64 09/22/2024 8:13 AM CDT Temperature 36.6 C (97.9 F) 09/22/2024 8:13 AM CDT Respiratory Rate 16 05/24/2024 12:27 PM CDT Oxygen Saturation 98% 09/22/2024 8:13 AM CDT Inhaled Oxygen Concentration - - Weight 85.7 kg (189 lb) 09/22/2024 8:13 AM CDT Height 167.6 cm (5' 6) 09/22/2024 8:13 AM CDT Body Mass Index 30.51 09/22/2024 8:13 AM CDT Plan of Treatment Health Maintenance Due Date Last Done Comments Breast Cancer Screening-Mammogram 1971 Cervical Cancer Screening 1971 Colon Cancer Screening-Colonoscopy 1971 Depression Screening 1971 Hepatitis C Screening 1971 DTaP/Tdap/Td Vaccine (1 - Tdap) 11/27/1982 Hepatitis B Screening 11/27/1989 Regular Well Visit/Exam 18-64 11/27/1989 Pneumococcal vaccine <65 (1 of 2 - PCV) 11/27/1990 Zoster Vaccine (1 of 2) 11/27/2021 Covid-19 Vaccine (3 - 2024- season) 11/01/202408/2020, 05/16/2020 Influenza Vaccine (#1) 2024 Medical Devices Implanted Type Area Coremaker Helper Device Identifier Shelf Expiration Date Model / Serial / Lot [employer] Biological Bariatric Peristrip Non Crosslinked Bovine Pericardium For Endo Ivy Thin [id number] - [id number] Implanted:Qty: 1 on 03/15/2024 at [facility] N/A: Stomach [employer] 06/20/2025 [id number] / / [id number] [employer] Biological Bariatric Peristrip Non Crosslinked Bovine Pericardium For Endo Ivy Thin [id number] - [id number] Implanted:Qty: 1 on 03/15/2024 at [facility] N/A: Stomach [employer] 06/20/2025 [id number] / / [id number] Insurance [employer] [place] Advance Directives For more information, please contact: [phone] Documents on File Type Date Recorded 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
--- NOTE | 2025-02-09 21:15 | WPDHOMESLEEP ---
Sleep Study - Home Unattended Date of Study: 01/11/25 Ordering Provider: Lacho Alvarez MD Interpreting Provider: Keshia Muller MD Home Sleep Study Type: Watch PAT Height: 1.68 m Weight: 78.471 kg Body Mass Index: 27.9 Neck Circumference (inches): 13 [place]: 12 Reason for Sleep Study Hypersomnolence NOTE: This was a repeat home sleep test. The initial portable home sleep test did not provide reliable data. There was severe interference with the pulse oximeter showing inconsistent signals likely due to artificial nails. Her study was compromised and she agreed to repeat it. She picked up this device on February 04 and returned it on February 07. Sleep History Shama Malave is a 54-year-old female who wakes up during the night and she feels tired during the day. She rarely awakens from sleep feeling short of breath. She rarely awakens at night with heartburn, belching or coughing. She frequently snores, rarely loud enough that others complain about it. She occasionally has difficulty sleeping when she has a cold. She rarely gasps for breath at night. She really has breathing problems at night observed by others. She occasionally sweats excessively at night, rarely notices her heart pounding or beating irregularly mean night. She occasionally falls asleep during the day, never falls asleep involuntarily however rarely she has fallen asleep while driving. She does not have loss of muscle tone with strong emotion. She rarely has daytime difficulties due to excessive sleepiness. 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 She does not feel paralyzed on waking or falling asleep. She occasionally has vivid dreamlike scenes upon awakening or falling asleep. She does not feel afraid to go to sleep. She occasionally has nightmares. She frequently remembers her dreams. She occasionally has racing thoughts. She occasionally feels sad or depressed. She occasionally has anxiety. She frequently has muscular tension. She occasionally notices parts of her body jerking and occasionally kicks at night. She rarely has crawling or aching feelings in her legs. She does not have any kind of leg pain during the night. She constantly has morning jaw pain and frequently grinds her teeth at night. She occasionally is bothered by pain during the day, occasionally awakened by pain at night. She frequently wakes up feeling stiff in the morning, frequently wakes up with sore achy muscles and pain in the neck and spine. She has fatigue and frequent morning headaches. She has had no change in her weight during the last year. Normal bedtime is 10:00 p.m. falling asleep within 20 minutes, waking at 3:00 a.m. to go to the bathroom and get a drink of water. She returns to sleep within 15 minutes. Her normal wake time is 6:30 a.m.. On weekends, bedtime is 11:00 p.m., wake time is 8:00 a.m.. She estimates getting between 8 and 10 hours of sleep at night. She does not take naps in the afternoon or evening. A short nap lasting 10-15 minutes is not refreshing. She is drowsy for 1 hour after waking. Habits: Tobacco : Never smoker Caffeine : one serving daily Alcohol : none Recreational substances : none PMFSH Past Medical History Medical History Chronic pulmonary embolism Acute pancreatitis COVID-19 Carpal tunnel syndrome, bilateral Hypothyroid DVT (deep venous thrombosis) Elevated blood pressure, situational Retinal vein occlusion of left eye Obesity Interstitial cystitis Diverticulitis large intestine Surgical History Surgical History S/P gastric bypass History of gastric bypass Laparoscopic 2024 Family History Family History Mother Diabetes mellitus Father Family history of coronary artery disease, Onset Age: 72 Family history of atrial fibrillation, Onset Age: 72 Family history of congestive heart failure, Onset Age: 72 Cerebrovascular accident, Onset Age: 72 Family history of colonic diverticulitis Grandparent Carcinoma of colon Social History Social History Smoking status: Never smoker Alcohol intake: current Alcohol use details: rarely Substance use: never Substance use type: does not use Lack of Transportation: No Lack of Food: Never True Current Housing: I Have Housing Concerned About Future Housing: No Difficulty Paying Gas/Electric Bills: No Difficulty Paying for Meds: No Currently Unemployed: No Education: High School Diploma/GED Difficulty w/ Childcare or Family Care: No Living arrangements: with family Spiritual care concerns: No Medications Home Medications ?Medication ?Instructions ?Recorded ?Confirmed ?Type famotidine 40 mg tablet 40 mg PO DAILY 03/05/22 12/21/24 History ondansetron HCl 4 mg tablet 4 mg PO Q8H PRN nausea and 11/01/22 12/21/24 Rx vomiting #30 tabs dicyclomine 10 mg capsule 10 mg PO BID PRN abdominal pain 12/11/22 12/21/24 Rx #30 caps lorazepam 0.5 mg tablet 0.5 mg PO TID PRN anxiety #30 tabs 07/03/23 12/21/24 Rx clotrimazole-betamethasone 1 1 applic topical BID PRN yeast #45 12/22/23 12/21/24 Rx %-0.05 % topical cream grams cyanocobalamin (vitamin B-12) 500 mcg PO 06/17/24 12/21/24 History mcg tablet multivitamin tablet PO 06/17/24 12/21/24 History nystatin 100,000 unit/gram topical topical 06/17/24 12/21/24 History powder (Nystop) sertraline 200 mg capsule 200 mg PO DAILY #90 caps 06/21/24 12/21/24 Rx estradiol 0.01% (0.1 mg/gram) 1 appful vaginal DAILY #42.5 grams 12/21/24 12/21/24 Rx vaginal cream (Estrace) atorvastatin 10 mg tablet 10 mg PO QHS #90 tabs 12/29/24 Rx bupropion HCl 300 mg 24 hr tablet, 300 mg PO DAILY #90 tabs 12/29/24 Rx extended release (Wellbutrin XL) levothyroxine 150 mcg tablet 150 mcg PO DAILY #90 tabs 12/29/24 Rx (Synthroid) Sleep Procedure The sleep study was completed using TeravacT a technically adequate device with seven channels: peripheral arterial tone, actigraphy, body position, snore, respiratory movement, pulse oximetry, sleep staging, and heart rate. Prior to using the device, the patient received verbal and written instructions for its application and was provided with the help desk phone number for additional telephonic instruction with 24-hour availability of qualified personnel to answer questions. Sleep Architecture The total recording time is 9 hrs, 55 min. The total sleep time is 9 hrs, 13 min. Sleep latency is 16 minutes. REM latency is 359 minutes. The patient had 5 episodes of waking. Sleep architecture shows 12.0% deep sleep, 76.6% light sleep, and 11.4% stage REM. The patient spent 39.7% of total sleep time in the supine position. Sleep efficiency was 93%. Respiratory Analysis The overall AHI (pAHI 3%:) is 8.5. The central AHI is 2.7. The AHI was 8.8 in NREM and 6.7 in REM sleep. The AHI was 10.9 in Supine and 6.9 in Non-supine sleep. Percent of Ubaldo Martinez respirations is 0%. Oximetry Data The oxygen desaturation index (JESSIE 4%:) is 4.3. The mean saturation is 94%, and the lowest saturation is 86%. Time spent with saturation < 88% is 0.3 minutes. Snoring Profile Snoring average intensity is 40 dB. The patient snored above 45 decibels for 13.0 minutes, 2.3% of sleep time. Cardiac Profile The average pulse rate is 52 beats per minutes. The lowest pulse rate is 40 bpm. The highest pulse rate reported is 81 bpm. Cardiac rhythm analysis in sleep does not show atrial fibrillation. Assessment and Plan Assessment and Plan (1) Obstructive sleep apnea: Code(s): G47.33 - Obstructive sleep apnea (adult) (pediatric) Status: Acute Assessment and Plan: This home sleep test using WatchPat on 02/06/2025 shows mild obstructive sleep apnea with an apnea-hypopnea index of 8.5 (p>3%), desaturation to 86% and moderate snoring. She spent 0.3 minutes below 88%. She has a medical comorbidity including anxiety and depression, she is on Zoloft and bupropion. With this comorbidity, she is a candidate for treatment. Options include auto PAP. I recommend that this patient be prescribed Resmed AirSense 11 AutoPAP 5-15 cm H2O, CPAP mask/filters/tubing and humidifier chamber. This should be used with all episodes of sleep. Compliance should be reviewed within 31-90 days of starting therapy for usage greater than 4 hours per night greater than 70% of the nights. The patient should be asked about symptoms such as excessive daytime sleepiness, quality of sleep, decreased nocturia, increased mental functioning such as memory, mood, and concentration. If she does not respond to auto PAP I would recommend full night titration in the sleep lab with a sleep aid available to use, if needed, to get to sleep and stay asleep. Her sleep history indicates that she grinds her teeth at night and frequently awakens with jaw pain. Untreated obstructive sleep apnea can cause patients to grind her teeth. If she continues to have issues after she initiates treatment, I recommend that she talk with her Charles about additional therapy such as a mouth guard to reduce wear and tear on her enamel. Data The data obtained during this sleep study is adequate for interpretation. Certification This sleep study has been reviewed by a board certified sleep medicine physician.
[2025-02-09 21:16] VITALS: BMI 27.9
== END 2025-01-11 13:00 | disposition home or self-care (01) ==
PROVIDERS: PCP Family Medicine; Visit Provider Family Medicine
DX: G47.9 Sleep disorder, unspecified (principal); G47.33 Obstructive sleep apnea (adult) (pediatric)
CPT/HCPCS: 95800